=== PATIENT | female | born 1940 | race Caucasian/White ===

== ENCOUNTER 2017-10-19 05:00 | Outpatient (CLI) | payer MEDICARE, OTHER ==
[~2017-10-19 05:00] MED LIST: ALBU18HF2 IH; ASPI-1009 PO; ATOR80TA PO; CLOP75TA35 PO; LISI-222 PO; MV,C1TAB34 PO; NITR0.4T51 SL; NITR100C11 PO; OXYC-138 PO; PROM25TA14 PO
== END 2017-10-19 23:59 | disposition home or self-care (01) ==
LOC: DIABETIC 05:00
PROVIDERS: ATTEND Family Medicine
DX: R63.4 Abnormal weight loss (principal); R13.12 Dysphagia, oropharyngeal phase; I10 Essential (primary) hypertension; J44.9 Chronic obstructive pulmonary disease, unspecified; J45.909 Unspecified asthma, uncomplicated; Z90.710 Acquired absence of both cervix and uterus
CPT/HCPCS: G0108

== ENCOUNTER 2018-10-28 13:52 | Outpatient (CLI) | payer MEDICARE, OTHER ==
[2018-10-28] MEDS ORDERED: diatrozoate meglu/diatrozoate sod (37% iodine) 120ML oral solution ONE (14:17)
== END 2018-10-28 23:59 | disposition home or self-care (01) ==
LOC: RAD 13:52
PROVIDERS: ATTEND Surgery
DX: Z43.4 Encounter for attention to other artificial openings of digestive tract (principal)
CPT/HCPCS: 74021; Q9963

== ENCOUNTER 2019-01-12 12:41 | Day surgery (SDC) | payer MEDICARE, OTHER ==
[~2019-01-12] VITALS: Ht 167.6 cm; Wt 64.8 kg
[2019-01-12 13:10] VITALS: BP 114/53
[2019-01-12] MEDS ORDERED: iohexol 300 MG/1 ML 50ml polymer ONE ×2 (14:11→15:11)
[2019-01-12] MEDS ORDERED: METO5TAB85 PO (14:49)
[2019-01-12] MEDS ORDERED: PER10325T PO (14:49)
[2019-01-12] MEDS ORDERED: POLY17PO10 PO (14:49)
[2019-01-12] MEDS ORDERED: CLON-514 PO (14:49)
[2019-01-12] MEDS ORDERED: POTA10TA19 PO (14:49)
[2019-01-12] MEDS ORDERED: THY15T PO (14:49)
[2019-01-12] MEDS ORDERED: OMEP20CA10 PO (14:49)
[2019-01-12] MEDS ORDERED: TOPI50TA24 PO (14:49)
[2019-01-12] MEDS ORDERED: ATOR20TA66 PO (14:49)
[2019-01-12] MEDS ORDERED: PHEN125O3 PO (14:49)
[2019-01-12] MEDS ORDERED: TRAZ-218 PO (14:49)
[2019-01-12] MEDS ORDERED: LIDOcaine 1%/PF 5ML 10 MG/ML VIAL ONE (15:11)
[2019-01-12 16:15] VITALS: BP 111/66
== END 2019-01-12 16:45 | disposition home or self-care (01) ==
LOC: SSTAY O 12:41
PROVIDERS: ATTEND Radiology Diagnostic Radiology
DX: K94.23 Gastrostomy malfunction (principal); K21.9 Gastro-esophageal reflux disease without esophagitis; K31.89 Other diseases of stomach and duodenum; Z88.0 Allergy status to penicillin; Z88.8 Allergy status to other drugs, medicaments and biological substances; Z79.899 Other long term (current) drug therapy; Z91.018 Allergy to other foods; Z87.820 Personal history of traumatic brain injury
CPT/HCPCS: 49451; B4087; J2001; Q9967; C1769

== ENCOUNTER 2019-05-10 08:04 | Outpatient (CLI) | payer MEDICARE, OTHER ==
[~2019-05-10] VITALS: Ht 167.6 cm; Wt 64.6 kg
[2019-05-10] VITALS (14 sets, daily range): BP systolic 99–138; BP diastolic 51–67
[~2019-05-10 08:04] MED LIST changes: -ALBU18HF2 IH; -ASPI-1009 PO; -ATOR80TA PO; +CLON-514 PEG; -CLOP75TA35 PO; -LISI-222 PO; +METO5TAB85 PEG; +MULT-955 PEG; -MV,C1TAB34 PO; -NITR0.4T51 SL; -NITR100C11 PO; +OMEP20CA11 PO; +ONDA4TAB6 PO; -OXYC-138 PO; +PER10325T PO; +PHEN125O3 PEG; +POLY17PO10 PO; +POTA10TA19 PEG; -PROM25TA14 PO; +RANI15SY PO; +THY15T PEG; +TOP100T PO
[2019-05-10] MEDS ORDERED: normal saline 500ml IV soln 500 ML IV ONE (09:05)
[2019-05-10] MEDS ORDERED: aminophylline 250mg/10ml inj. IV PRN (09:05)
[2019-05-10] MEDS ORDERED: regadenoson 0.4mg/5ml syringe IV ONE (09:05)
[2019-05-10] MEDS ORDERED: LORazepam 2 mg/ml vial IM ONE ×2 (10:15→10:20)
[2019-05-10] MEDS ORDERED: LORazepam 2 mg/ml vial IV ONE (10:30)
[2019-06-10] MEDS ORDERED: POTA20LI5 PEG (11:34)
[2019-06-10] MEDS ORDERED: RANI300T4 PEG (11:34)
[2019-06-10] MEDS ORDERED: ATOR20TA66 PO (11:34)
[2019-06-10] MEDS ORDERED: TOP100T PO (11:34)
== END 2019-05-10 23:59 | disposition home or self-care (01) ==
LOC: RAD 08:04
PROVIDERS: ATTEND Internal Medicine Interventional Cardiology
DX: Z01.818 Encounter for other preprocedural examination (principal); I50.9 Heart failure, unspecified; I25.10 Atherosclerotic heart disease of native coronary artery without angina pectoris
CPT/HCPCS: 76937; 78452; 93017; A9500; J2060; J2785; J7040

== ENCOUNTER 2019-06-14 08:00 | Outpatient (CLI) | payer MEDICARE, OTHER ==
[~2019-06-14] VITALS: Ht 167.6 cm; Wt 68.0 kg
[~2019-06-14 08:00] MED LIST changes: +ATOR20TA66 PO; -METO5TAB85 PEG; -OMEP20CA11 PO; -ONDA4TAB6 PO; -POTA10TA19 PEG; +POTA20LI5 PEG; -RANI15SY PO; +RANI300T4 PEG
[2019-06-15] MEDS ORDERED: famotidine 20mg tablet PO ONE (06:15)
[2019-06-15] MEDS ORDERED: cefazolin/dext.iso 2gm/50ml 50 ML IV ONE (06:15)
[2019-06-15] MEDS ORDERED: ringers solution, lacted 1,000 ML IV SCH (06:15)
== END 2019-06-14 08:05 | disposition home or self-care (01) ==
LOC: PRE-OP 08:00 → EDSTATUS 06-15 09:15
PROVIDERS: ATTEND Surgery
DX: R63.4 Abnormal weight loss (principal)
CPT/HCPCS: J7120

== ENCOUNTER 2019-12-22 09:08 | Day surgery (SDC) | payer MEDICARE, OTHER ==
[~2019-12-22] VITALS: Ht 167.6 cm; Wt 74.3 kg
[2019-12-22 09:35] VITALS: BP 135/70
[2019-12-22] MEDS ORDERED: iohexol 300 MG/1 ML 50ml polymer ONE (09:57)
--- NOTE | 2019-12-22 10:00 | NUR ---
IR NURSES HERE TO REPLACE G-TUBE WITH NEW ONE. ANIYA COMPLETED AFTER. AWAITING DR GUAMAN TO CLEAR PT FOR D/C HOME Addendum: 12/22/19 at 1218 by Jerri King RN Amended: Links added.
[2019-12-22] MEDS ORDERED: LEVO50TA8 PO (10:17)
== END 2019-12-22 10:30 | disposition home or self-care (01) ==
LOC: SSTAY O 09:08
PROVIDERS: ATTEND Radiology Vascular & Interventional Radiology
DX: R13.10 Dysphagia, unspecified (principal); Z43.1 Encounter for attention to gastrostomy; J44.9 Chronic obstructive pulmonary disease, unspecified; I10 Essential (primary) hypertension
CPT/HCPCS: 43763; 74018; Q9967; B4087

== ENCOUNTER 2021-08-27 15:18 | Day surgery (SDC) | payer MEDICARE, OTHER ==
[~2021-08-27] VITALS: Ht 167.6 cm; Wt 74.1 kg
[~2021-08-27 15:18] MED LIST changes: -CLON-514 PEG; +CLON1TAB96 PEG; +LEVO50TA8 PO; -PHEN125O3 PEG; -THY15T PEG
[2021-08-27 15:37] VITALS: BP 125/62
[2021-08-27] MEDS ORDERED: FAMO20TA8 PO (15:49)
[2021-08-27] MEDS ORDERED: OMEP40CA21 PO (15:50)
[2021-08-27] MEDS ORDERED: MYCOL30CR TP (15:50)
[2021-08-27] MEDS ORDERED: DICY10CA88 PO (15:51)
[2021-08-27] MEDS ORDERED: FLO0.4C PO ×2 (15:51→15:52)
[2021-08-27 17:30] VITALS: BP 139/88
== END 2021-08-27 17:31 | disposition home or self-care (01) ==
LOC: GI LAB 15:18
PROVIDERS: ATTEND Internal Medicine Gastroenterology
DX: Z43.1 Encounter for attention to gastrostomy (principal); Z79.899 Other long term (current) drug therapy; Z88.8 Allergy status to other drugs, medicaments and biological substances; Z88.0 Allergy status to penicillin; Z88.5 Allergy status to narcotic agent; Z98.890 Other specified postprocedural states; Z98.51 Tubal ligation status; Z90.710 Acquired absence of both cervix and uterus
CPT/HCPCS: 43762; B4087; A5120

== ENCOUNTER 2023-12-07 09:50 | Outpatient (CLI) | payer MEDICARE, OTHER ==
[~2023-12-07 09:50] MED LIST changes: +DICY10CA88 PO; +FAMO20TA8 PO; +FLO0.4C PO; +NYST30CR35 TP; +OMEP40CA21 PO
[2023-12-07 11:16] LABS: BLOOD UREA NITROGEN 12 MG/DL (7-18); BUN/CREATININE RATIO 12.9 (10.0-20.0); CREATININE 0.93 MG/DL (0.40-0.90); eGFR 57 ML/MIN
[2023-12-07 11:18] LABS: ALBUMIN 3.3 G/DL (3.4-5.0); ANION GAP 8 (8-16); CALCIUM 8.9 MG/DL (8.5-10.1); CHLORIDE 110 MMOL/L (99-107); GLUCOSE 105 MG/DL (70-104); POTASSIUM 4.4 MMOL/L (3.5-5.1); SODIUM 143 MMOL/L (135-145); TOTAL CARBON DIOXIDE 24.8 MMOL/L (24-32)
[2023-12-07] MEDS ORDERED: iohexol 300mg/ml 100ml inj. ONE (11:58)
[2023-12-07] MEDS ORDERED: diatr meglu/diatrizoate 30ml oral sol.-(3 dose) bottle ONE (12:22)
== END 2023-12-07 23:59 | disposition home or self-care (01) ==
LOC: RAD 09:50
PROVIDERS: ATTEND Surgery
DX: I51.7 Cardiomegaly (principal); J98.11 Atelectasis; J90 Pleural effusion, not elsewhere classified; K94.23 Gastrostomy malfunction; N20.0 Calculus of kidney; K86.89 Other specified diseases of pancreas; K56.41 Fecal impaction; K46.9 Unspecified abdominal hernia without obstruction or gangrene; I25.10 Atherosclerotic heart disease of native coronary artery without angina pectoris; R13.10 Dysphagia, unspecified; Z90.49 Acquired absence of other specified parts of digestive tract
CPT/HCPCS: 36415; 74176; 80048; Q9963; J3490; Q9967